=== PATIENT | female | born 1980 | race Caucasian/White ===

== ENCOUNTER 2017-04-30 07:39 | Emergency (ER) | payer OTHER ==
[~2017-04-30] VITALS: Ht 170.2 cm; Wt 82.6 kg
[2017-04-30 08:29] LABS: HEMOGLOBIN 12.7 G/DL (11.9-15.5); MCHC 33.4 G/DL (30.0-36.0); MCV 92.7 FL (83-99); PLATELET COUNT 495 K/uL (156-360); RBC DIS.WIDTH-CV 12.6 % (11.8-14.6); RBC DIS.WIDTH-SD 42.5 % (39-53)
[2017-04-30 08:38] LABS: ALBUMIN 3.6 g/dL (3.2-4.8); CHLORIDE 100 mEq/L (99-109); SODIUM 138 mEq/L (136-147)
[2017-04-30 08:40] LABS: GLUCOSE 96 mg/dL (70-99); TOTAL PROTEIN 7.4 g/dL (6.4-8.3)
[2017-04-30 08:42] LABS: TOTAL BILIRUBIN 0.7 mg/dL (0.0-1.0)
[2017-04-30 08:44] LABS: ALKALINE PHOSPHATASE 66 IU/L (3-129); CREATININE 0.9 mg/dL (0.6-1.3)
[2017-04-30 08:45] LABS: UREA NITROGEN (BUN) 17 mg/dL (9-23)
[2017-04-30 08:46] LABS: AST (GOT) 18 IU/L (2-34)
[2017-04-30 08:47] LABS: ALT (GPT) 16 IU/L (3-49)
[2017-04-30 08:48] LABS: GFR ESTIMATE (CALCULATED) > 59 mL/min/
[2017-04-30 11:04] LABS: APPEARANCE CLEAR ((CLEAR)); BILIRUBIN NEGATIVE; BLOOD NEGATIVE; COLOR STRAW ((YELLOW)); GLUCOSE (STRIP) NEGATIVE; KETONES NEGATIVE; LEUKOCYTES NEGATIVE; NITRITE NEGATIVE; PROTEIN (STRIP) NEGATIVE; SPECIFIC GRAVITY 1.009 (1.000-1.030); UCUL ADDED? NO; UROBILINOGEN 0.2 MG/DL (0.2-1.0)
[2017-04-30 11:13] LABS: AMPHETAMINE PRESUMPTIVE POSITIVE (500 ng/mL); BARBITURATES NEGATIVE (200 ng/mL); BENZODIAZEPINES NEGATIVE (150 ng/mL); BUPRENORPHINE NEGATIVE (10 ng/mL); COCAINE NEGATIVE (150 ng/mL); METHADONE NEGATIVE (200 ng/mL); METHAMPHETAMINE PRESUMPTIVE POSITIVE (500 ng/mL); OPIATES (MORPHINE) NEGATIVE (100 ng/mL); OXYCODONE NEGATIVE (100 ng/mL); PHENCYCLIDINE NEGATIVE (25 ng/mL); PROPOXYPHENE NEGATIVE (300 ng/mL); THC CANNABINOIDS NEGATIVE (50 ng/mL); TRICYCLIC ANTIDEPRESSANTS NEGATIVE (300 ng/mL)
[2017-04-30] MEDS ORDERED: FLEXERIL10 MG PO (11:27)
[2017-04-30 11:46] VITALS: BP 130/82
== END 2017-04-30 11:46 | disposition home or self-care (01) ==
LOC: EME 07:39
PROVIDERS: Nurse Practitioner Family
DX: M62.838 Other muscle spasm (principal); F15.10 Other stimulant abuse, uncomplicated; F41.9 Anxiety disorder, unspecified
CPT/HCPCS: 80053; 81003; 84999; 85027; 99281; 99284; J2060